=== PATIENT | male | born 1960 | race Caucasian/White ===

== ENCOUNTER 2021-09-27 08:41 | Outpatient (REF) | payer MEDICARE, OTHER, SELFPAY | END 2021-09-27 08:42 | disposition home or self-care (01) | LOC: HO.BBR 08:41 | PROVIDERS: PCP Nurse Practitioner Adult Health; Visit Provider Internal Medicine Hematology | DX: E83.110 Hereditary hemochromatosis (principal) | CPT/HCPCS: 85014; 85018; 99195 ==

== ENCOUNTER 2022-01-24 08:35 | Outpatient (REF) | payer MEDICARE, OTHER, SELFPAY | END 2022-01-24 08:36 | disposition home or self-care (01) | LOC: HO.BBR 08:35 | PROVIDERS: PCP Nurse Practitioner Adult Health; Visit Provider Internal Medicine Hematology | DX: E83.119 Hemochromatosis, unspecified (principal) | CPT/HCPCS: 85014; 85018; 99195 ==

== ENCOUNTER 2022-05-28 08:53 | Outpatient (REF) | payer MEDICARE, OTHER, SELFPAY | END 2022-05-28 08:54 | disposition home or self-care (01) | LOC: HO.BBR 08:53 | PROVIDERS: Visit Provider Internal Medicine Hematology | DX: E83.119 Hemochromatosis, unspecified (principal) | CPT/HCPCS: 85014; 85018; 99195 ==

== ENCOUNTER 2022-09-24 08:38 | Outpatient (REF) | payer MEDICARE, OTHER, SELFPAY | END 2022-09-24 08:39 | disposition home or self-care (01) | LOC: HO.BBR 08:38 | PROVIDERS: Visit Provider Internal Medicine Hematology | DX: E83.10 Disorder of iron metabolism, unspecified (principal) | CPT/HCPCS: 85018; 99195 ==

== ENCOUNTER 2023-01-22 08:52 | Outpatient (REF) | payer MEDICARE, OTHER, SELFPAY | END 2023-01-22 08:53 | disposition home or self-care (01) | LOC: HO.BBR 08:52 | PROVIDERS: PCP Nurse Practitioner Adult Health; Visit Provider Internal Medicine Hematology | DX: E83.10 Disorder of iron metabolism, unspecified (principal) | CPT/HCPCS: 85018; 99195 ==

== ENCOUNTER 2023-05-27 08:54 | Outpatient (REF) | payer MEDICARE, OTHER, SELFPAY | END 2023-05-27 08:55 | disposition home or self-care (01) | LOC: HO.BBR 08:54 | PROVIDERS: Visit Provider Internal Medicine Hematology | DX: E83.10 Disorder of iron metabolism, unspecified (principal) | CPT/HCPCS: 85018; 99195 ==

== ENCOUNTER 2023-10-01 08:32 | Outpatient (REF) | payer MEDICARE, OTHER, SELFPAY | END 2023-10-01 08:33 | disposition home or self-care (01) | LOC: HO.BBR 08:32 | PROVIDERS: PCP Nurse Practitioner Adult Health; Visit Provider Internal Medicine Hematology | DX: E83.19 Other disorders of iron metabolism (principal) | CPT/HCPCS: 85018; 99195 ==

== ENCOUNTER 2024-01-30 08:25 | Outpatient (REF) | payer MEDICARE, OTHER, SELFPAY | END 2024-01-30 08:26 | disposition home or self-care (01) | LOC: HO.BBR 08:25 | PROVIDERS: PCP Nurse Practitioner Adult Health; Visit Provider Internal Medicine Hematology | DX: E83.19 Other disorders of iron metabolism (principal) | CPT/HCPCS: 85014; 85018; 99195 ==

== ENCOUNTER 2024-06-26 08:33 | Outpatient (REF) | payer MEDICARE, OTHER, SELFPAY | END 2024-06-26 08:34 | disposition home or self-care (01) | LOC: HO.BBR 08:33 | PROVIDERS: PCP Nurse Practitioner Adult Health; Visit Provider Internal Medicine Hematology | DX: E83.111 Hemochromatosis due to repeated red blood cell transfusions (principal) | CPT/HCPCS: 85018; 99195 ==

== ENCOUNTER 2024-11-04 08:03 | Outpatient (REF) | payer MEDICARE, OTHER, SELFPAY ==
--- OUTSIDE RECORDS SUMMARY | 2024-11-04 08:10 | XMS_ITS | Clinical Summary ---
Author Organization [facility] Address [facility] [place] [address] Care Team Providers Care Virtualization Consultant Name Role Phone Nicolás Mendenhall MD Primary Care Provider [phone] Allergies Active Allergy Reactions Criticality Noted Date Comments Barium Sulfate High CIS - rash & facial swelling, CIS - rash & facial swelling Medications Medication Sig Dispensed Refills Start Date End Date Status ibuprofen (ADVIL;MOTRIN) 600 mg Tablet Take 600 mg by mouth daily. Active azithromycin (ZITHROMAX) 250 mg Tablet 08/21/2016 Active clonazePAM (KLONOPIN) 1 mg Tablet 09/19/2016 Active acetaminophen (TYLENOL) 650 mg/20.3 mL Solution Take 20.3 mLs by mouth every 4 hours as needed. 02/02/2017 Active sucralfate (CARAFATE) 1 gram Tablet Take 1 tablet by mouth every 6 hours as needed. 02/02/2017 Active gabapentin (NEURONTIN) 100 mg Capsule Take 100 mg by mouth 3 times daily. Active Active Problems Problem Noted Date Diagnosed Date GERD (gastroesophageal reflux disease) 7 Status post laparoscopic Latisha fundoplication 0 01/08/2017 Gastroesophageal reflux 01/08/2017 Social History Tobacco Use Types Packs/Day Years Used Date Smoking Tobacco: Former Smokeless Tobacco: Never Comments:smoked in high scho ol Alcohol Use Standard Drinks/Week Comments Yes 0 (1 standard drink = 0.6 oz pur e alcohol) on and off Sex and Gender Information Value Date Recorded Sex Assigned at Not on file Gender Identity Not on file Sexual Orientation Not on file Last Filed Vital Signs Vital Sign Reading Time Taken Comments Blood Pressure 105/62 05/06/2017 2:15 PM EDT Pulse 55 05/06/2017 1:06 PM EDT Temperature 36.8 ??C (98.2 ??F) 02/02/2017 12:20 PM E DT Respiratory Rate 18 05/06/2017 1:06 PM EDT Oxygen Saturation 95% 05/06/2017 2:20 PM EDT Inhaled Oxygen Concentration - - Weight 99.8 kg (220 lb 0.3 oz) 02/01/2017 12:17 PM EDT Height 172.7 cm (5' 7.99 ) 02/01/2017 12:17 PM E DT Body Mass Index 33.46 02/01/2017 12:17 PM EDT Plan of Treatment Health Maintenance Due Date Last Done Comments CT Colonography 1960 Colonoscopy 1960 Colorectal Cancer Screening 1960 FIT DNA 1960 FIT 1960 Sigmoidoscopy (10 year) with FIT yearly 1960 Sigmoidoscopy 1960 HIV screen 1979 Hepatitis C Screening 1979 Lipid Screening 1979 Tetanus/Diphtheria/Pertussis Vaccines (1 - Tdap) 02/03 Pneumoccocal Vaccine: 50+ (1 of 1 - PCV) 2011 Zoster vaccine (1 of 2) 2011 Advance Directive 02/04/2016 Covid-19 Vaccine (1 - 2023- season) 2024 Influenza (Flu) vaccine (1 o f 1 - Influenza standard series) 05/17/2024 Advance Directives * Full Code (Latest Code Status on File) Date Activated Date Inactivated Comments 05/06/2017 1:36 PM 05/06/2017 4:31 PM Question Answer Comments Does patient have capacity to make decision: Yes * Full Code Date Activated Date Inactivated Comments 02/01/2017 4:44 PM 02/02/2017 4:42 PM Question Answer Comments Does patient have capacity to make decision: Yes * Full Code Date Activated Date Inactivated Comments 02/01/2017 1:04 PM 02/01/2017 4:44 PM Question Answer Comments Does patient have capacity to make decision: Yes Care Teams Virtualization Consultant Relationship Specialty Start Date End Date Nicloás Mendenhall MD [address] [place] [address] PCP - General General Internal Medicine 01/03/17
--- OUTSIDE RECORDS SUMMARY | 2024-11-04 08:10 | XMS_ITS | Continuity of Care Document ---
Author Name [facility] Organization [facility] Care Team Providers Care Clinical Recruiter Name Role Phone [facility] Unavailable Unavailable Social History Combined list of available smoking, tobacco, and other social history from Department of Defense and Veterans Affairs facilities. Social History Type Response Date Comment Sourc e This section is an empty social history section. [facility]
== END 2024-11-04 08:04 | disposition home or self-care (01) ==
LOC: HO.BBR 08:03
PROVIDERS: PCP Nurse Practitioner Adult Health; Visit Provider Internal Medicine Hematology
DX: E83.119 Hemochromatosis, unspecified (principal)
CPT/HCPCS: 85018; 99195

== ENCOUNTER 2025-03-03 07:53 | Outpatient (REF) | payer MEDICARE, OTHER, SELFPAY ==
--- OUTSIDE RECORDS SUMMARY | 2025-03-03 08:00 | XMS_ITS | Continuity of Care Document ---
Author Name [facility] Organization [facility] Care Team Providers Care Electrical Maintenance Man Name Role Phone [facility] Unavailable Unavailable Social History Combined list of available smoking, tobacco, and other social history from Department of Defense and Veterans Affairs facilities. Social History Type Response Date Comment Sourc e This section is an empty social history section. DoD
== END 2025-03-03 07:54 | disposition home or self-care (01) ==
LOC: HO.BBR 07:53
PROVIDERS: PCP Nurse Practitioner Adult Health; Visit Provider Internal Medicine Hematology
DX: E83.111 Hemochromatosis due to repeated red blood cell transfusions (principal)
CPT/HCPCS: 85014; 85018; 99195

== ENCOUNTER 2025-07-27 09:33 | Outpatient (REF) | payer MEDICARE, OTHER, SELFPAY ==
--- OUTSIDE RECORDS SUMMARY | 2025-07-27 10:35 | XMS_ITS | Encounter Summary ---
Author Organization [facility] Address [address] [place] [address] [place] [address] Phone Care Team Providers Care Blocklayer Name Role Phone Rosemary Izaguirre NP Unavailable [phone] Gwendolyn Lopes SECTION MAINTAINER Unavailable [phone] Nicolás Mendenhall MD Unavailable [phone] Rosemary Izaguirre NP Primary Care Provider + [phone] Encounter Details Date Type Department Care Team (Late st Contact Info) Description 04/02/2023 Procedure Pass OR Admitting Dept - Virtual Department [address] [place] [address] [id number] Social History Tobacco Use Types Packs/Day Years Used Date Smoking Tobacco: Former Cigarettes 0.5 4 0 09/16/1977 - 02/04/1980 Smokeless Tobacco: Never Comments:in high school Alcohol Use Standard Drinks/Week Comments Yes 1 (1 standard drink = 0.6 oz pur e alcohol) Education Answer Date Recorded Are you interested in more education? Not on sal[place] e 01/10/2023 Are you concerned about learning? Not on file 01/10/2023 No 01/10/2023 No 01/10/2023 Digital Access Answer Date Recorded No 02/11/2023 No 02/11/2023 Reliable internet access at home? Not on file 02/11/2023 Device with a working camera? Not on file Sex and Gender Information Value Date Recorded Sex Assigned at Male 12/11/2019 2:16 PM EDT Legal Sex Male 7:39 PM EST Gender Identity Male 12/11/2019 2:16 PM EDT Sexual Orientation Straight 12/11/2019 2: 16 PM EDT documented as of this encounter Plan of Treatment Not on file documented as of this encounter Visit Diagnoses Not on filedocumented in this encounter Care Teams Blocklayer Relationship Specialty Start Date End Date Rosemary Izaguirre NP [address] [place] [address] PCP - General Internal Medicine 09/30/18 Rosemary Izaguirre NP [address] [place] [address] Historical LMR Provider 07/07/17 Gwendolyn Lopes CNP [address] [place] [address] Historical LMR Provider 07/07/17 Nicolás Mendenhall MD [address] [place] [address] Historical LMR Provider 07/07/17 documented as of this encounter Additional Source Comments The information contained in this document represents components of the legal health record. It is not the complete legal health record.[facility]
--- OUTSIDE RECORDS SUMMARY | 2025-07-27 10:35 | XMS_ITS | Clinical Summary ---
Author Organization [facility] Address [facility] [place] [address] Care Team Providers Care Speech And Hearing Clinic Director Name Role Phone Nicolás Mendenhall MD Primary Care Provider [phone] Allergies Active Allergy Reactions Criticality Noted Date Comments Barium Sulfate High CIS - rash & facial swelling, CIS - rash & facial swelling Medications ibuprofen (ADVIL;MOTRIN) 600 mg Tablet Take 600 [...] Recorded Sex Assigned at Not on file Legal Sex Male 6:49 AM EST Gender Identity Not on file Sexual Orientation Not on file Last Filed Vital Signs Vital Sign Reading Time Taken Comments Blood Pressure 105/62 05/06/2017 2:15 PM EDT Pulse 55 05/06/2017 1:06 PM EDT Temperature 36.8 C (98.2 F) 02/02/2017 12:20 PM EDT Respiratory Rate 18 05/06/2017 1:06 PM EDT [...] Advance Directive 02/04/2016 Covid-19 Vaccine (1 - 2024- season) 2025 Influenza (Flu) vaccine (1 o f 1 - Influenza standard series) 05/17/2025 Insurance MEDICARE [facility] Advance Directives * Full Code (Latest Code [...] capacity to make decision: Yes Care Teams Speech And Hearing Clinic Director Relationship Specialty Start Date End Date Nicolás Mendenhall MD [address] [place] [address] [address] [place] [address] PCP - General General Internal Medicine 01/03/17
--- OUTSIDE RECORDS SUMMARY | 2025-07-27 10:35 | XMS_ITS | Encounter Summary ---
Author Organization [facility] Address [address] [place] [address] Phone Care Team Providers Care Revenue Cycle Administrator Name Role Phone Rosemary Izaguirre NP Unavailable [phone] Matt Rojo MD Unavailable [phone] Gwendolyn Lopes SALES RECORD CLERK Unavailable [phone] Nicolás Mendenhall MD Unavailable [phone] Doni Thorne MD Unavailable Unavailable Rosemary Izaguirre NP Primary Care Provider + [phone] Nicolás Mendenhall MD Unavailable [phone] Encounter Details Date Type Department Care Team (Late st Contact Info) Description 09/18/2019 Procedure Pass OR Admitting Dept - [facility] Department [address] [place] [address] [id number] Social History Tobacco Use Types Packs/Day Years Used Date Smoking Tobacco: Former Cigarettes 0.5 4 Smokeless Tobacco: Never Alcohol Use Standard Drinks/Week Comments Yes 5 (1 standard drink = 0.6 oz pur e alcohol) socially Sex and Gender Information Value Date Recorded Sex Assigned at Male 12/11/2019 2:16 PM EDT Legal Sex Male 7:39 PM EST Gender Identity Male 12/11/2019 2:16 PM EDT Sexual Orientation Straight 12/11/2019 2: 16 PM EDT documented as of this encounter Plan of Treatment Not on file documented as of this encounter Visit Diagnoses Not on filedocumented in this encounter Care Teams Revenue Cycle Administrator Relationship Specialty Start Date End Date Rosemary Izaguirre NP [address] [place] [address] [email or web address] PCP - General Internal Medicine 09/30/18 Rosemary Izaguirre NP [address] [place] [address] [email or web address] Historical LMR Provider 07/07/17 Matt Rojo MD [address] [place] [address] [email or web address] Historical LMR Provider 07/07/17 09/23/21 Gwendolyn Lopes CNP [address] [place] [address] [email or web address] Historical LMR Provider 07/07/17 Nicolás Mendenhall MD [address] [place] [address] Historical LMR Provider 07/07/17 Doni Thorne MD Historical LMR Provider 07/07/17 09/23/21 Nicolás Mendenhall MD [address] [place] [address] [email or web address] Insurance Assigned Provider 12/23/19 09/24/20 documented as of this encounter Additional Source Comments The information contained in this document represents components of the legal health record. It is not the complete legal health record.[facility]
--- OUTSIDE RECORDS SUMMARY | 2025-07-27 10:35 | XMS_ITS | Clinical Summary ---
Author Organization [facility] Address [address] [place] [address] Phone Care Team Providers Care Concrete Pump Operator Name Role Phone Lorrie Izaguirre NP Unavailable [phone] Gwendolyn Lopes MARKET SPECIALIST Unavailable [phone] Nicolás Mendenhall MD Unavailable [phone] Lorrie Izaguirre NP Primary Care Provider + [phone] Allergies Active Allergy Reactions Criticality Noted Date Comments Barium Sulfate Hives High 09/20/2015 Barium Sulfate was for an upper GI test. Eggplant Swelling 05/11/2019 Tongue swelling Medications fluticasone propionate (FLONASE) 50 mcg/actuation nasal spray 1 spray by Nasal route daily. Active acetaminophen (TYLENOL) 500 MG tablet Take 2 tablets (1,000 mg total) by mouth every 8 (eight) hours. 0 3 Active aspirin 81 MG EC tablet Take 1 tablet (81 mg total) by mouth 2 (two) times a day for 28 days. 56 tablet 3 Active Medication-Free Text Take by mouth daily. Prostadine Active Medication-Free Text Take 2 capsules by mouth daily. Monroe XL Joint and Muscle Support Active gabapentin (NEURONTIN) 300 MG capsuleIndicati ons:Chronic midline low back pain with bilateral sciatica Take 2 capsules (600 mg total) by mouth 2 (two) times a day. 360 capsule 5 Active Active Problems Problem Noted Date Diagnosed Date Aftercare following left knee joint replacement surgery 05/16/2023 Elevated ferritin level 08/29/2021 Allergic rhinitis 11/19/2017 Chronic low back pain 11/19/2017 Gastroesophageal reflux disease without esophagi tis 11/19/2017 Insomnia 11/19/2017 Neurogenic bladder 11/19/2017 Obesity 11/19/2017 Plasmocytoma 11/19/2017 T7-T12 level with spinal cord injury 11/19/2017 Primary localized osteoarthrosis of left lower l eg 11/19/2017 Resolved Problems Problem Noted Date Diagnosed Date Resolved Date BPH (benign prostatic hyperplasia) 11/19/2017 02/19/2023 GERD without esophagitis 11/19/2017 Right carpal tunnel syndrome 02/19/2023 Left carpal tunnel syndrome 02/19/2023 Encounters Date Type Department Care Team Description 05/13/2025 Refill [facility] [address] [place] [address] [place] [address] Citro, Taylor, NURSE ANESTHETIST Medication Refill (Gabapentin) from Last 3 Months Immunizations Immunization Administration Dates Next Due COVID-19 (Pre-07/08) Moderna Vaccine, mRNA, PF 0 01/21/2021,12/24/2020 INFLUENZA, SPLIT VIRUS, TRIVALENT PF 07/07/2024 Influenza Quadrivalent Preservative Free IM 12/2021,08/29/2021 Influenza Quadrivalent w/ Preservative IM 2005 Td (adult) 5 Lf Tetanus Toxoid, PF, Adsorbed 09/1995 Zoster recombinant 08/01/2022 Family History Medical History Relation Comments Lung cancer Father COPD Sister 1 Relation Status Comments Brother Alive Father Mother Alive Sister 1 Sister 2 Alive Son 1 Alive Son 2 Alive Son 3 Alive Social History Tobacco Use Types Packs/Day Years Used Date Smoking Tobacco: Former Cigarettes 0.5 4 0 09/16/1977 - 02/04/1980 Smokeless Tobacco: Never Tobacco Cessation:Counseling Given: Not Answered Comments:in high school Alcohol Use Standard Drinks/Week Comments Yes 1 (1 standard drink = 0.6 oz pur e alcohol) Home Health Assessment: Transportation Answer Date Recorded Lack of Transportation (Medical) No 04/12/2023 Lack of Transportation (Non-Medical) No 04/12/2023 Patient Unable or Declines to Respond No 04/12/2023 Education Answer Date Recorded Are you interested [...] Orientation Straight 12/11/2019 2: 16 PM EDT Last Filed Vital Signs Vital Sign Reading Time Taken Comments Blood Pressure 144/80 07/07/2024 2:53 PM EDT Pulse 85 07/07/2024 2:53 PM EDT Temperature 36.4 C (97.5 F) 07/07/2024 2:53 PM EDT Respiratory Rate 16 04/12/2023 11:11 AM EDT Oxygen Saturation 95% 07/07/2024 2:53 PM EDT Inhaled Oxygen Concentration - - Weight 112.5 kg (248 lb) 07/07/2024 2:53 PM EDT pt reported Height 175.3 cm (5' 9 ) 04/02/2023 10:55 AM EDT Body Mass Index 36.62 04/02/2023 10:55 AM EDT Plan of Treatment Health Maintenance Due Date Last Done Comments DEPRESSION SCREENING 1973 SMOKING Hx and SMOKELESS TOBACCO SCREENING 1974 HIV ONE-TIME SCREENING (18-65 YEARS) 1979 PNEUMOCOCCAL VACCINES (50+ years) (1 of 2 - PCV) 02/04/1980 COLOGUARD 2006 FIT TEST 2006 FOBT 2006 SIGMOIDOSCOPY 2006 VIRTUAL COLONOSCOPY 2006 Adult Td,Tdap Booster 02/14/2006 02/15/1996 ZOSTER VACCINES (2 of 2) 09/26/2022 08/01/2022 INFLUENZA VACCINE (#1) 2025 4, 07/20/2022, 08/29/2021, Additional history exists COVID-19 VACCINE ( season) 2025 08/01/2022, 09/18/2021, 01/21/2021, Additional history exists SCREENING FOR DIABETES 11/13/2026 11/13/2023, 2022 LIPID PANEL 11/13/2028 11/13/2023, 06/16, 06/25/2020 COLONOSCOPY 06/13/2030 06/13/2020 COLORECTAL CANCER SCREENING 06/13/2030 RSV VACCINE (1 - 1-dose 75+ series) 02/04/2036 HEPATITIS C SCREENING Completed 09/11/2016 HEPATITIS A VACCINES Aged Out No long er eligible based on patient's age to complete this topic HIB VACCINES Aged Out No longer eligi ble based on patient's age to complete this topic MENINGOCOCCAL VACCINES (ACWY) Aged Out No longer eligible based on patient's age to complete this topic MENINGOCOCCAL VACCINES (B) Aged Out N o longer eligible based on patient's age to complete this topic Medical Devices Implanted Type Area Mold Capper Device Identifier Shelf Expiration Date Model / Serial / Lot Tray Tibial Knee [place] Aoy Lt Medial Size D - [id number] Implanted:Qty: 1 on 04/02/2023 by Erasmo Torrez MD at [facility] STANDARD Left: Knee [employer] 02/25/2033 [id number] / / [id number] Knee Bearing Medium Size 3 Component Tibial [place] [employer] Meniscal Anatomic Left - [id number] Implanted:Qty: 1 on 04/02/2023 by Erasmo Torrez MD at [facility] STANDARD Left: Knee [employer] 01/23/2028 [id number] / / [id number] Hardware In Back Bone Cement Antibiotic Refobacin - [id number] Implanted:Qty: 1 on 04/02/2023 by Erasmo Torrez MD at [facility] Left: Knee [employer] 05/16/2025 [id number] / / [id number] Knee Implant Medium Component Femoral [place] Alloy Twin Pegged Cemented Partial - [id number] Implanted:Qty: 1 on 04/02/2023 by Erasmo Torrez MD at [facility] Left: Knee [employer] 01/05/2033 [id number] / / [id number] Procedures Procedure Name Priority Date/Time Associated Diagnosis Comments LIPID PANEL Routine 11/13/2023 8:34 AM EST Laboratory exam ordered as part of routine general medical examination ENDOSCOPY, COLON 06/13/2020 9:32 AM EDT from Last 3 Months or Most Recently Relevant to Health Maintenance Results * Lipid panel (11/13/2023 8:34 AM EST) HDL 41 mg/dL [facility] Comment: Interpretation <40 mg/dL: Low HDL cholesterol (major risk factor for CHD) Greater than or equal to 60 mg/dL: High HDL cholesterol ( negative risk factor for CHD) HDL - cholesterol is affected by a number of factors, e.g. smoking, excerise, hormones, sex and age. CHOLESTEROL 166 0 - 240 mg/dL [facility] TRIGLYCERIDES 141 30 - 160 mg/dL [facility] LDL 97 50 - 129 mg/dL [facility] Comment: LDL levels in terms of risk for coronary heart disease: <100 mg/dL: Optimal 100-129 mg/dL: Near or above optimal 130-159 mg/dL: Borderline high 160-189 mg/dL: High >190 mg/dL: Very High CARDIAC RISK RATIO 4.0 3.4 - 5.0 [facility] Blood 11/13/2023 8:34 AM EST 11/13/2023 8:38 AM EST Lorrie Izaguirre NP LAB BLOOD BKR ORDERABLES F inal Result [address] [address] * ENDOSCOPY, COLON (06/13/2020 9:32 AM EDT) Narrative Transcriptions Vinod Kruger MD - 06/13/2020 9:32 AM EDT Patient Name: Livan Linda Attending MD:: VINOD KRUGER MD Procedure Date: 06/13/2020 9:32 AM Date of : 1960 Age: 60 Admit Type: Outpatient Gender: Male Room: [place] [address] Referring MD: LORRIE IZAGUIRRE MD Exam Type: Colonoscopy Indications: Screening for colorectal malignant neoplasm, Last colonoscopy: 2009 Medications: Monitored Anesthesia Care Procedure: Informed consent was obtained from the patient after discussion of the indications, limitations, alternatives, benefits, and risks of the procedure. Risks specifically discussed include but are not limited to medication reactions, missed lesions, bleeding, perforation, or the need for emergentsurgery. Throughout the procedure, the patient's bloodpressure, pulse, end-tidal CO2, and oxygen saturations were monitored continuously. The Olympus adult variable colonoscope [id number] #2was introduced through the anus and advanced to the terminal ileum. The colonoscopy was performedwithout difficulty. The patient tolerated the procedurewell. The quality of the bowel preparation was good. Complications: No immediate complications. Estimated blood loss:None. Findings: The perianal and digital rectal examinations were normal. A 3 mm polyp was found in the sigmoid colon. Thepolyp was sessile. The polyp was removed with a coldbiopsy forceps. Resection and retrieval were complete. Multiple small-mouthed diverticula were found in the sigmoid colon. The rectum, recto-sigmoid colon, descending colon, splenic flexure, transverse colon, hepatic flexure, ascending colon, cecum, appendiceal orifice,ileocecal valve, ileum, rectum (on retroflexion) and ascending colon (on retroflexion) appeared normal. Impression: - One 3 mm polyp in the sigmoid colon, removed witha cold biopsy forceps. Resected and retrieved. - Diverticulosis in the sigmoid colon. - The rectum, recto-sigmoid colon, descending colon, splenic flexure, transverse colon, hepatic flexure, ascending colon, cecum, appendiceal orifice,ileocecal valve and terminal ileum are normal. Recommendation: - Discharge patient to home. - Resume previous diet. - Continue present medications. - Await pathology results. - Repeat colonoscopy 7 years if pathology shows adenoma, 10 years if hyperplastic. for surveillance based on pathology results. - I will send you pathology results by letter. Ifyou do not get results in 3 weeks telephone my office. - You have diverticulosis so please eat a high fiber diet. VINOD KRUGER MD 06/13/2020 9:57:17 AM This report has been signed electronically. Number of Addenda: 0 Note Initiated On: 06/13/2020 9:32 AM Procedure Code(s): --- Professional --- 63300, Colonoscopy, flexible; with biopsy, single or multiple --- Technical --- 65418, Colonoscopy, flexible; with biopsy, single or multiple Diagnosis Code(s): --- Professional --- Z12.11, Encounter for screening for malignantneoplasm of colon D12.5, Benign neoplasm of sigmoid colon K57.30, Diverticulosis of large intestine without perforation or abscess without bleeding --- Technical --- Z12.11, Encounter for screening for malignantneoplasm of colon D12.5, Benign neoplasm of sigmoid colon K57.30, Diverticulosis of large intestine without perforation or abscess without bleeding CPT copyright 2018 [employer]. All rights reserved. The codes documented in this report are preliminary and upon director of preclinical research reviewmay be revised to meet current compliance requirements. Procedure Date: 06/13/2020 9:32:08 AM [address] [place] [address] Lorrie Izaguirre NP GI PROCEDURE ORDERABLES Ed ited Result - Final from Last 3 Months or Most Recently Relevant to Health Maintenance Insurance [facility] [employer] MEDICARE SUPPLEMENT MEDICARE PART A & B [facility] [employer] MEDICARE SUPPLEMENT MEDICARE PART A & B [employer] MEDICARE SUPPLEMENT MEDICARE PART A & B [employer] MEDICARE SUPPLEMENT MEDICARE PART A & B [facility] EXTENSION MEDICARE SUPPLEMENT MEDICARE PART A & B [employer] MEDICARE SUPPLEMENT MEDICARE PART A & B [employer] MEDICARE SUPPLEMENT MEDICARE PART A & B [facility] EXTENSION MEDICARE SUPPLEMENT MEDICARE PART A & B [facility] [employer]ION MEDICARE SUPPLEMENT [place]IC[place] PART A & [place] [id number] Advance Directives For more information, please contact: [phone] (9AM - 5PM [facility], Saturday-Saturday) * Full Code (Presumed) (Latest Code Status on File) Date Activated Date Inactivated Comments 09/18/2019 10:17 AM 09/18/2019 2:32 PM Care Teams Concrete Pump Operator Relationship Specialty Start Date End Date Lorrie Izaguirre NP [address] [place] [address] [place] [address] PCP - General Internal Medicine 09/30/18 Lorrie Izaguirre NP [address] [place] [address] [place] [address] Historical LMR Provider 07/07/17 Gwendolyn Lopes, MARKET SPECIALIST [address] [place] [address] [address] [place] [address] [email or web address] Historical LMR Provider 07/07/17 Nicolás Mendenhall MD [address] [place] [address] [address] [place] [address] [email or web address] Historical LMR Provider 07/07/17 Additional Source Comments The information contained in this document represents components of the legal health record. It is not the complete legal health record.[facility]
--- OUTSIDE RECORDS SUMMARY | 2025-07-27 10:35 | XMS_ITS | Encounter Summary ---
Author Organization [facility] Address [address] [place] [address] [place] [address] Phone Care Team Providers Care Discharge Coordinator Name Role Phone Rosemary Izaguirre NP Unavailable [phone] Gwendolyn Lopes PEARL DIGGER Unavailable + [phone] Nicolás Mendenhall MD Unavailable [phone] Rosemary Izaguirre FOREIGN LANGUAGES DEPARTMENT CHAIR Primary Care Provider + [phone] Encounter Details Date Type Department Care Team (Late st Contact Info) Description 12/06/2022 Procedure Pass [facility], [address] [id number] Social History Tobacco Use Types Packs/Day Years Used Date Smoking Tobacco: Former Cigarettes 0.5 4 0 09/16/1977 - 02/04/1980 Smokeless Tobacco: Never Comments:in high school Alcohol Use Standard Drinks/Week Comments Yes 0 [...] on filedocumented in this encounter Care Teams Discharge Coordinator Relationship Specialty Start Date End Date Rosemary Izaguirre NP [address] [place] [address] [address] [place] [address] [email or web address] PCP - General Internal Medicine 09/30/18 Rosemary Izaguirre NP [address] [place] [address] [email or web address] Historical LMR Provider 07/07/17 Gwendolyn Lopes CNP [address] [place] [address] Historical LMR Provider 07/07/17 Nicolás Mendenhall MD [address] [place] [address] 09[address] Historical LMR Provider 07/07/17 documented as of this encounter Additional Source Comments The information contained in this document represents components of the legal health record. It is not the complete legal health record.[facility]
--- OUTSIDE RECORDS SUMMARY | 2025-07-27 10:35 | XMS_ITS | Encounter Summary ---
Author Organization [facility] Address [address] [place] [address] Phone Care Team Providers Care Elevator Inspector Name Role Phone Rosemary Izaguirre NP Unavailable [phone] Matt Rojo MD Unavailable [phone] Gwendolyn Lopes CUT PLUG PACKER Unavailable Nicolás Mendenhall MD Unavailable [phone] Doni Thorne MD Unavailable Unavailable Rosemary Izaguirre NP Primary Care Provider + [phone] Nicolás Mendenhall MD Unavailable +[phone] Encounter Details Date Type Department Care Team (Late st Contact Info) Description 06/09/2019 Prep for Surgery [facility] Orthopedics & Sports Medicine [address] [place] [address] Mayra Hairston MD [address] [place] [address] Orthopedics & Sports Medicine, [place] [address] Social History Tobacco Use Types Packs/Day Years [...] on filedocumented in this encounter Care Teams Elevator Inspector Relationship Specialty Start Date End Date Rosemary Izaguirre NP [address] [place] [address] [email or web address] PCP - General Internal Medicine 09/30/18 Rosemary Izaguirre NP [address] [place] [phone] Historical LMR Provider 07/07/17 Matt Rojo MD [address] [place] [address] 16[address] [email or web address] Historical LMR Provider 07/07/17 09/23/21 Gwendolyn Lopes CNP [address] [place] [address] Historical LMR Provider 07/07/17 Nicolás Mendenhall MD [address] [place] [address] Historical LMR Provider 07/07/17 Doni Thorne MD Historical LMR Provider 07/07/17 09/23/21 Nicolás Mendenhall MD [address] [place] [address] 9[address] Insurance Assigned Provider 12/23/19 09/24/20 documented as of this encounter Additional Source Comments The information contained in this document represents components of the legal health record. It is not the complete legal health record.[facility]
--- OUTSIDE RECORDS SUMMARY | 2025-07-27 10:35 | XMS_ITS | Encounter Summary ---
Author Organization [facility] Address [address] [place] [address] Phone Care Team Providers Care Chemical Research Worker Name Role Phone Rosemary Izaguirre NP Unavailable [phone] Matt Rojo MD Unavailable [phone] Gwendolyn Lopes PROOFSHEET CORRECTOR Unavailable [phone] Nicolás Mendenhall MD Unavailable [phone] Doni Thorne MD Unavailable Unavailable Rosemary Izaguirre NP Primary Care Provider + [phone] Nicolás Mendenhall MD Unavailable +[phone] Encounter Details Date Type Department Care Team (Late st Contact Info) Description 06/13/2020 Procedure Pass [facility]oscopy Admitting Dept [facility] Department [address] [place] [address] [phone] Social History Tobacco Use Types Packs/Day Years Used Date Smoking Tobacco: Former Cigarettes 0.5 4 Smokeless Tobacco: Never Comments:in high school Alcohol Use Standard Drinks/Week Comments Not Currently 5 (1 standard drink = 0.6 oz pur e alcohol) rare Sex and Gender Information Value Date Recorded Sex Assigned at Male 12/11/2019 2:16 PM EDT Legal Sex Male 7:39 PM EST Gender Identity Male 12/11/2019 2:16 PM EDT Sexual Orientation Straight 12/11/2019 2: 16 PM EDT documented as of this encounter Plan of Treatment Not on file documented as of this encounter Visit Diagnoses Not on filedocumented in this encounter Care Teams Chemical Research Worker Relationship Specialty Start Date End Date Rosemary Izaguirre NP [address] [place] [address] [email or web address] PCP - General Internal Medicine 09/30/18 Rosemary Izaguirre NP [address] [place] [address] [email or web address] Historical LMR Provider 07/07/17 Matt Rojo MD [address] [place] [address] [email or web address] Historical LMR Provider 07/07/17 09/23/21 Gwendolyn Lopes CNP [address] [place] [address] [email or web address] Historical LMR Provider 07/07/17 Nicolás Mendenhall MD [address] [place] [address] Historical LMR Provider 07/07/17 Doni Thorne MD Historical LMR Provider 07/07/17 09/23/21 Nicolás Mendenhall MD [address] [place] [phone] Insurance Assigned Provider 12/23/19 09/24/20 documented as of this encounter Additional Source Comments The information contained in this document represents components of the legal health record. It is not the complete legal health record.[facility]
--- OUTSIDE RECORDS SUMMARY | 2025-07-27 10:35 | XMS_ITS | Encounter Summary ---
Author Organization [facility] Address [address] [place] [address] Phone Care Team Providers Care Schedule Clerk Name Role Phone Rosemary Izaguirre NP Unavailable [phone] Matt Rojo MD Unavailable [phone] Gwendolyn Lopes GROUNDS RESTORATION SPECIALIST Unavailable [phone] Nicolás Mendenhall MD Unavailable [phone] Doni Thorne MD Unavailable Unavailable Rosemary Izaguirre NP Primary Care Provider + [phone] Nicolás Mendenhall MD Unavailable +[phone] Encounter Details Date Type Department Care Team (Late st Contact Info) Description 05/13/2019 Procedure Pass [place] Admitting Dept - [facility] Department [address] [place] [address] [phone] Social History Tobacco Use Types Packs/Day Years [...] on filedocumented in this encounter Care Teams Schedule Clerk Relationship Specialty Start Date End Date Rosemary Izaguirre NP [address] [place] [phone] [email or web address] PCP - General Internal Medicine 09/30/18 Rosemary Izaguirre NP [address] [place] [address] [email or web address] Historical LMR Provider 07/07/17 Matt Rojo MD [address] [place] [address] [email or web address] Historical LMR Provider 07/07/17 09/23/21 Gwendolyn Lopes CNP [address] [place] [address] [email or web address] Historical LMR Provider 07/07/17 Nicolás Mendenhall MD [address] [place] [address] Historical LMR Provider 07/07/17 Doni Thorne MD Historical LMR Provider 07/07/17 09/23/21 Nicolás Mendenhall MD [address] [place] [address] [email or web address] Insurance Assigned Provider 12/23/19 09/24/20 documented as of this encounter Additional Source Comments The information contained in this document represents components of the legal health record. It is not the complete legal health record.[facility]
== END 2025-07-27 09:34 | disposition home or self-care (01) ==
LOC: HO.BBR 09:33
PROVIDERS: PCP Nurse Practitioner Adult Health; Visit Provider Internal Medicine Hematology
DX: E83.119 Hemochromatosis, unspecified (principal)
CPT/HCPCS: 85018; 99195